=== PATIENT | female | born 1960 | race Caucasian/White ===

== ENCOUNTER 2022-06-19 07:38 | Outpatient (CLI) | payer OTHER, SELFPAY ==
--- NOTE | 2022-06-19 07:45 | CRLHL7_ITS ---
For Patients: As a result of the Century Cures Act, medical imaging exams and procedure reports are released immediately into your electronic medical record. You may view this report before your referring provider. If you have questions, please contact your health care provider. BILATERAL MAMMOGRAM WITH COMPUTER-AIDED DETECTION AND TOMOSYNTHESIS TECHNIQUE: CC and MLO views were obtained. These mammographic images have been obtained using full-field digital technique. These mammographic images were interpreted with the benefit of computer-aided detection. Breast Tomosynthesis was used in this interpretation. COMPARISON FILM: 06/14/21, 06/08/20, 02/24/19 FINDINGS: There are scattered areas of fibroglandular density IMPRESSION: There is no radiographic evidence for malignancy. ASSESSMENT: BI-RADS Category 1: Negative RECOMMENDATION: Routine screening mammogram in 1 year. A lay language report of this examination will be provided to the patient. Rachid Brown M.D. Diagnostic Radiologist [email or web address] RADHA/Dictated by: Rachid Brown MD @ 06/19/2022 9:26:00 AM (Electronically Signed)
== END 2022-06-19 07:39 | disposition home or self-care (01) ==
LOC: MAMMO 07:39
PROVIDERS: PCP Internal Medicine; Visit Provider Internal Medicine
DX: Z12.31 Encounter for screening mammogram for malignant neoplasm of breast (principal)
CPT/HCPCS: 77063; 77067

== ENCOUNTER 2023-03-02 07:33 | Outpatient (CLI) | payer OTHER, SELFPAY | END 2023-03-02 07:34 | disposition home or self-care (01) | LOC: NFLDREF 03-03 03:44 | PROVIDERS: PCP Internal Medicine; Referring Provider Internal Medicine; Visit Provider Internal Medicine | DX: E78.5 Hyperlipidemia, unspecified (principal); E11.9 Type 2 diabetes mellitus without complications | CPT/HCPCS: 80061 ==

== ENCOUNTER 2023-10-09 10:34 | Outpatient (CLI) | payer OTHER, SELFPAY ==
--- NOTE | 2023-10-09 10:45 | CRLHL7_ITS ---
For Patients: As a result of the Century Cures Act, medical imaging exams and procedure reports are released immediately into your electronic medical record. You may view this report before your referring provider. If you have questions, please contact your health care provider. BILATERAL SCREENING MAMMOGRAM WITH COMPUTER-AIDED DETECTION AND TOMOSYNTHESIS TECHNIQUE: CC and MLO views were obtained. These mammographic images have been obtained using full-field digital technique. These mammographic images were interpreted with the benefit of computer-aided detection. Breast Tomosynthesis was used in this interpretation. COMPARISON FILM: 06/19/22, 06/14/21, 06/08/20. FINDINGS: There are scattered areas of fibroglandular density IMPRESSION: There is no radiographic evidence for malignancy. ASSESSMENT: BI-RADS Category 1: Negative RECOMMENDATION: Routine screening mammogram in 1 year. A lay language report of this examination will be provided to the patient. Rachid Brown M.D. Diagnostic Radiologist [email or web address] RADHA/Dictated by: Rachid Brown MD @ 10/09/2023 11:38:00 AM (Electronically Signed)
== END 2023-10-09 10:35 | disposition home or self-care (01) ==
LOC: MAMMO 10:35
PROVIDERS: PCP Internal Medicine; Visit Provider Internal Medicine
DX: Z12.31 Encounter for screening mammogram for malignant neoplasm of breast (principal)
CPT/HCPCS: 77063; 77067

== ENCOUNTER 2024-07-22 08:15 | Outpatient (CLI) | payer MEDICARE, BC, SELFPAY ==
--- OUTSIDE RECORDS SUMMARY | 2024-07-23 15:40 | XMS_ITS | Clinical Summary ---
Author Organization [facility] Address [place], [place] [address] Care Team Providers Care Mine Engineering Manager Name Role Phone Miguelina Noel MD Primary Care Provider Allergies Active Allergy Reactions Criticality Noted Date Comments Cefaclor Hives 04/16/2007 Levofloxacin Rash 04/16/2007 Medications No known medications Active Problems Problem Noted Date Diagnosed Date Family history of malignant neoplasm of gastrointestinal tract 10/17/2012 Overview: Colonoscopy 09/2012 normal repeat in 5 years Mixed hyperlipidemia 05/02/2011 Estrogen excess 04/26/2011 Lipid screening 04/26/2011 Colon polyp 04/26/2011 ALLERGIC RHINITIS CAUSE UNSPECIFIED, SEASONAL Overview: SEASONAL Immunizations Name Administration Dates Next Due AMB Influenza, IIV4 PF (=>6 mos Flulaval,Fluzone Fluarix)(Flu Clinic Only) 09/23/2014 Influenza, IIV4 08/03/2015 Td (Age >=7 Years) 11/19/1996 Tdap 04/18/2007 Family History Medical History Relation Name Comments Other Brother KIDNEY STONE Arthritis Mother Hyperlipidemia Mother Hypertension Mother Other Mother KIDNEY STONE/ga llstones Osteoporosis Sister 1 x2 Cancer-breast Sister 2 diagnosed at a 50 Cancer-colon Other GRANDPARENT ON BOTH SIDES Relation Name Status Comments Brother Mother Sister 1 Sister 2 Other Social History Tobacco Use Types Packs/Day Years Used Date Smoking Tobacco: Never Smokeless Tobacco: Never Tobacco Cessation:Counseling Given: Yes Alcohol Use Standard Drinks/Week Comments No 0 (1 standard drink = 0.6 oz pur e alcohol) Sex and Gender Information Value Date Recorded Sex Assigned at Not on file Gender Identity Not on file Sexual Orientation Not on file Obstetrics History Last Filed Vital Signs Vital Sign Reading Time Taken Comments Blood Pressure 125/81 12/10/2015 12:[address] LIGHT REPAIRER HELPER Pulse 61 12/10/2015 12:[address] LIGHT REPAIRER HELPER Temperature 37.1 ??C (98.8 ??F) 10/06/2015 2:09 PM CS T Respiratory Rate - - Oxygen Saturation 97% 12/10/2015 12:[address] LIGHT REPAIRER HELPER Inhaled Oxygen Concentration - - Weight 79.6 kg (175 lb 6.4 oz) 12/10/2015 12:[address] LIGHT REPAIRER HELPER Height 154.5 cm (5' 0.83) 12/10/2015 12:[address] Body Mass Index 33.33 12/10/2015 12:[address] LIGHT REPAIRER HELPER Plan of Treatment Health Maintenance Due Date Last Done Comments HIV for age 15-65 1974 Hepatitis C screening for age 18-79 1977 Zoster (shingles) series for age 50+ (1 of 2) 2009 BMI (ht and wt on same day) for age 18+ 12/10/2016 12/10/2015 Depression screening for age 12+ 12/10/2016 12/10/2015 Mammogram for age 45-75 01/17/2017 01/18/20 16, 12/25/2014, 12/22/2013, Additional history exists Tetanus booster 04/18/2017 04/18/2007, 11/19/1996 Colonoscopy through age 75 10/17/201710/17, 10/17/2012, 05/28/2007 Lipids for age 45-75 08/30/2020 08/30/2015, 09/24/2012, 04/26/2011, Additional history exists COVID-19 vaccine series (2022-24 season) 2024 Influenza for age 50-64 07/20/2024 08/03/20 15, 09/23/2014, 11/01/2011 (Declined) Pap test for age 21-65 03/05/2026 3, 03/05/2023, 08/30/2015, Additional history exists Tdap Completed 04/18/2007 Pneumococcal series for age 6-64 Aged Out No longer eligible based on patient's age to complete this topic Procedures Procedure Name Priority Date/Time Associated Diagnosis Comments HPV THIN PREP Routine 03/05/2023 9:15 AM CDT Encounter for screening for malignant neoplasm of cervix XR MAMMO BILAT SCREEN FFDM (IA) Routine 01/18/2016 11:[address] LIGHT REPAIRER HELPER Visit for screening mammogram LIPID PANEL W REFLEX MEASURED LDL Routine 08/30/2015 10:10 AM CDT Lipid screening from Last 3 Months or Most Recently Relevant to Health Maintenance Results * HPV HIGH RISK (03/05/2023 9:15 AM CDT) TYPE 16 Negative Negative 03/07/2023 10:49 AM CDT [facility] TYPE 18 Negative Negative 03/07/2023 10:49 AM CDT [facility] OTHER HIGH RISK TYPES Negative Negative 03/07/2023 10:49 AM CDT [facility] Other (Cervical) 03/05/2023 9:15 AM CDT 03/06/2023 9:04 AM CDT Narrative [facility] - 03/07/2023 10:49 AM CDT HPV types 16, 18, 31, 33, 35, 39, 45, 51, 52, 56, 58, 59, 66 and 68 DNA were undetectable or below the pre-set threshold. Methodology: Angy Mg 4800 HPV Test Elen Moreno MD [facility]CROBIOLOGY [facility] [address] [place] [address], * XR MAMMO BILAT SCREEN FFDM (01/18/2016 11:[address] LIGHT REPAIRER HELPER) Anatomical Region Laterality Modality BREASTS, Breast Left, Breast Right Bilateral Mammography Impressions 01/18/2016 12:[address] LIGHT REPAIRER HELPER ??There is no radiographic evidence for malignancy. ??Recommend annual mammograms. A lay language report of this examination will be provided to the patient. MAMMOGRAM ASSESSMENT: ??ACR 1 Negative Narrative 01/18/2016 12:[address] LIGHT REPAIRER HELPER XR MAMMO BILAT SCREEN FFDM [G0202.0] CLINICAL HISTORY: ??This is an asymptomatic 55 y.o. patient. INDICATION FOR EXAM: Mammogram Screening. TECHNIQUE: CC & MLO views were obtained. ??This digital study was evaluated with the assistance of Computer-Aided Detection. COMPARISON FILM: Yes 12/25/14 [facility] 12/22/13 [facility] FINDINGS: ??Mammographically, the breast tissue has scattered fibroglandular densities. ??There are no dominant masses, suspicious micro calcifications or areas of architectural distortion. Miguelina Noel MD MAMMO * (ABNORMAL) LIPID PANEL W REFLEX MEASURED LDL ([id number]) (08/30/2015 10:10 AM CDT) CHOLESTEROL,TOTAL 235(H) 100 - 199 mg/dL 08/30/2015 11:12 AM CDT [facility] TRIGLYCERIDES 78 <150 mg/dL 08/30/2015 11:12 AM CDT [facility] HDL CHOLESTEROL 48 >40 mg/dL 08/30/2015 11:12 AM CDT [facility] NON-HDL CHOLESTEROL 187(H) <145 mg/dl 08/30/2015 11:12 AM CDT [facility] CHOL/HDL RATIO 4.90(H) <4.50 08/30/2015 11:12 AM CDT [facility] LDL CHOLESTEROL 171(H) <=130 mg/dL 08/30/2015 11:12 AM CDT [facility] PATIENT STATUS FASTING 08/30/2015 11:12 AM CDT [facility] Blood specimen (specimen) BLOOD SPECIMEN / Unknown Venipuncture / Unknown 08/30/2015 10:10 AM CDT 08/30/2015 10:10 AM CDT Miguelina Noel MD CHEMISTRY [facility] [address] [place] [address], from Last 3 Months or Most Recently Relevant to Health Maintenance Care Teams Mine Engineering Manager Relationship Specialty Start Date End Date Miguelina Noel MD [address] [place] [address] PCP - General Family Practice 09/24/12
== END 2024-07-22 08:16 | disposition home or self-care (01) ==
LOC: NFLDREF 07-23 15:29
PROVIDERS: PCP Internal Medicine; Referring Provider Internal Medicine; Visit Provider Internal Medicine
DX: E78.5 Hyperlipidemia, unspecified (principal)
CPT/HCPCS: 80061

== ENCOUNTER 2024-12-08 14:45 | Outpatient (CLI) | payer MEDICARE, BC, SELFPAY ==
--- NOTE | 2024-12-08 15:00 | CRLHL7_ITS ---
For Patients: As a result of the Century Cures Act, medical imaging exams and procedure reports are released immediately into your electronic medical record. You may view this report before your referring provider. If you have questions, please contact your health care provider. BILATERAL SCREENING MAMMOGRAM WITH COMPUTER-AIDED DETECTION AND TOMOSYNTHESIS TECHNIQUE: CC and MLO views were obtained. These mammographic images have been obtained using full-field digital technique. These mammographic images were interpreted with the benefit of computer-aided detection. Breast Tomosynthesis was used in this interpretation. COMPARISON FILM: 10/09/23, 06/19/22, 06/14/21. FINDINGS: There are scattered areas of fibroglandular density. IMPRESSION: There is no radiographic evidence for malignancy. ASSESSMENT: BI-RADS Category 1: Negative RECOMMENDATION: Routine screening mammogram in 1 year. A lay language report of this examination will be provided to the patient. Pollo Palomares M.D. Diagnostic/Nuclear Medicine Radiologist [email or web address] SP/Dictated by: Pollo Palomares MD @ 12/10/2024 12:16:00 PM (Electronically Signed)
== END 2024-12-08 14:46 | disposition home or self-care (01) ==
LOC: MAMMO 14:46
PROVIDERS: PCP Internal Medicine; Visit Provider Internal Medicine
DX: Z12.31 Encounter for screening mammogram for malignant neoplasm of breast (principal)
CPT/HCPCS: 77063; 77067

== ENCOUNTER 2025-06-25 08:27 | Outpatient (CLI) | payer MEDICARE, BC, SELFPAY ==
[2025-06-27 00:07] LABS: HPV Source Cervix
[2025-06-30 12:26] LABS: Pap Test Digital Imaging Done
== END 2025-06-25 08:28 | disposition home or self-care (01) ==
PROVIDERS: PCP Internal Medicine; Visit Provider Registered Nurse
DX: Z12.4 Encounter for screening for malignant neoplasm of cervix (principal); Z11.51 Encounter for screening for human papillomavirus (HPV)
CPT/HCPCS: 87624; 87625; 88141; 88142; 88175

== ENCOUNTER 2025-08-18 08:14 | Outpatient (CLI) | payer MEDICARE, BC, SELFPAY | END 2025-08-18 08:15 | disposition home or self-care (01) | LOC: NFLDREF 08-19 12:42 | PROVIDERS: PCP Internal Medicine; Referring Provider Internal Medicine; Visit Provider Internal Medicine | DX: E78.5 Hyperlipidemia, unspecified (principal); R73.03 Prediabetes | CPT/HCPCS: 80061; 82947 ==

== ENCOUNTER 2025-09-07 08:43 | Outpatient (CLI) | payer MEDICARE, BC, SELFPAY ==
--- NOTE | 2025-09-07 10:08 | P.ANES_ITS ---
Anesthesia Charges Start Date/Time Anesthesia Start Date: 09/07/25 Anesthesia Start Time: 09:38 Stop Date/Time Anesthesia Stop Date: 09/07/25 Anesthesia Stop Time: 10:06 Coding CPT Codes CPT Codes: [facility] INTST NDSC NOS - 14804 ([id number]) P2 - PATIENT W/MILD SYST DISEASE, QX - WATER RESOURCES PROGRAM DIRECTOR SVC W/ MD MED DIRECTION, QK - TEST CONDUCTOR 2-4 CNCRNT [facility] PROC
--- NOTE | 2025-09-07 10:08 | W.ANESCHARGE ---
Anesthesia Charges Start Date/Time Anesthesia Start Date: 09/07/25 Anesthesia Start Time: 09:38 Stop Date/Time Anesthesia Stop Date: 09/07/25 Anesthesia Stop Time: 10:06 Coding CPT Codes CPT Codes: [facility]AS INTST NDSC NOS - 70457 ([id number]) P2 - PATIENT W/MILD SYST DISEASE, QX - SEAWEED HARVESTER SVC W/ MD MED DIRECTION, QK - SEWING PATTERN LAYOUT TECHNICIAN 2-4 CNCRNT [facility] PROC
--- NOTE | 2025-09-07 11:42 | P.ANES_ITS ---
Anesthesia Charges Start Date/Time Anesthesia Start Date: 09/07/25 Anesthesia Start Time: 09:38 Stop Date/Time Anesthesia Stop Date: 09/07/25 Anesthesia Stop Time: 10:06 Coding CPT Codes CPT Codes: [facility] RIVAS INTST NDSC NOS - 57004 ([id number]) P2 - PATIENT W/MILD SYST DISEASE, QX - ENVIRONMENTAL LABORATORY TECHNICIAN SVC W/ MD MED DIRECTION, QK - AIRBORNE AND AIR DELIVERY SPECIALIST 2-4 CNCRNT [facility] PROC
--- NOTE | 2025-09-07 11:42 | W.ANESCHARGE ---
Anesthesia Charges Start Date/Time Anesthesia Start Date: 09/07/25 Anesthesia Start Time: 09:38 Stop Date/Time Anesthesia Stop Date: 09/07/25 Anesthesia Stop Time: 10:06 Coding CPT Codes CPT Codes: [facility] RIVAS INTST NDSC NOS - 85829 ([id number]) P2 - PATIENT W/MILD SYST DISEASE, QX - PYRIDINE RECOVERY OPERATOR SVC W/ MD MED DIRECTION, QK - CHAR FILTER TANK TENDER 2-4 CNCRNT UMM PROC
== END 2025-09-07 08:44 | disposition home or self-care (01) ==
LOC: OP CLINIC 08:45
PROVIDERS: PCP Internal Medicine; Visit Provider Surgery
DX: Z12.11 Encounter for screening for malignant neoplasm of colon (principal); Z86.0100 Personal history of colon polyps, unspecified; D12.0 Benign neoplasm of cecum; K57.30 Diverticulosis of large intestine without perforation or abscess without bleeding
CPT/HCPCS: 00811; 45385; 88305; J2704